=== PATIENT | female | born 1955 | race Caucasian/White ===

== ENCOUNTER → 2017-07-28 | Day surgery (SDC) | payer OTHER ==
[~2017-07-28] VITALS: Ht 152.4 cm; Wt 77.1 kg
[~2017-07-28] MED LIST: COZAAR50 M1 PO; TENORMIN50 MG PO; VERAPAMIL HCL120 M1 PO; VIBRAMYCIN100 MG PO; ZOCOR40 MG PO
--- NOTE | ~2017-07-28 | O ---
[place], [place] OPERATIVE NOTE NAME: KING ATKINSON UNIT #: [id number] ROOM: DOCTOR: ANGELIC HOUSER MD BIRTHDATE: [birth year] DOS: 07/28/2017 INDICATIONS: This is a 61-year-old patient who presented with the chief complaint of history of colonic polyp, 8 years ago. ALLERGIES: PENICILLIN. FAMILY HISTORY: An aunt with colonic carcinoma. Dad with colon segmental resection, questionable CA. PAST SURGICAL HISTORY: None. PAST MEDICAL HISTORY: Hypercholesterolemia, hypertension. SOCIAL HISTORY: Nonsmoker; however, alcohol consumer. PROCEDURE: Today's procedure part of investigation is colonoscopy plus polypectomy x 2. PREMEDICATION: Versed and Diprivan. SCOPE: Olympus folding colonoscope 10L video. DESCRIPTION OF PROCEDURE: After putting the patient in left lateral position and application of lubricant to the scope, the scope was introduced. Thereafter, under direct visualization, advanced through the length of colon without difficulty. Base of the cecum explored, appendiceal orifice identified, ileocecal valve was defined, sessile polypoid lesion at the base of cecum, piecemeal polypectomy removed. Another polypoid lesion in the sigmoid colon. This is again sessile in character with piecemeal polypectomy removed. Air was suctioned out. The patient was extubated and tolerated the procedure well. IMPRESSION: Sigmoid diverticulosis of moderate degree, presence of sessile polypoid lesion at sigmoid the cecum and sigmoid colon, status post piecemeal polypectomy. PLAN AND DISCUSSION: High fiber fruit diet, low fat diet. ACTIVITY: Ad shyla. FOLLOWUP: Follow up with family physician. Followup with ____ for her colon between 5-7 years. [place], [place] OPERATIVE NOTE NAME: KING ATKINSON UNIT #: [id number] ROOM: DOCTOR: ANGELIC HOUSER MD BIRTHDATE: [birth year] ANGELIC HOUSER MD CM:OPRECORD:OPERATIVE NOTE [id number] ANGELIC HOUSER MD 07/28/17 1500 interface
[2017-07-28 11:30] VITALS: BP 128/58
[2017-07-28 14:42] VITALS: BP 126/52
[2017-07-28 14:52] VITALS: BP 138/72
[2017-07-28 15:10] VITALS: BP 143/69
== END | disposition home or self-care (01) ==
LOC: SDC 07-26 09:30
DX: Z09 Encounter for follow-up examination after completed treatment for conditions other than malignant neoplasm (principal); D12.3 Benign neoplasm of transverse colon; D12.0 Benign neoplasm of cecum; Z86.010 Personal history of colon polyps; Z88.0 Allergy status to penicillin; Z80.0 Family history of malignant neoplasm of digestive organs; E78.00 Pure hypercholesterolemia, unspecified; I10 Essential (primary) hypertension; K57.30 Diverticulosis of large intestine without perforation or abscess without bleeding; K21.9 Gastro-esophageal reflux disease without esophagitis; Z98.890 Other specified postprocedural states; Z82.49 Family history of ischemic heart disease and other diseases of the circulatory system